=== PATIENT | female | born 1990 | race Caucasian/White ===

== ENCOUNTER 2017-06-18 15:28 | Emergency (ER) | payer OTHER ==
--- NOTE | 2017-06-18 16:24 | PD ---
HPI Chief Complaint Decreased movement Date Seen: Jun 18, 2017 Time Seen: 16:22 Travel History International Travel<30 Days: No Contact w/Intl Traveler<30Days: No Known Affected Area: No History of Present Illness HPI 26-year-old who is 22 weeks 6 days comes in complaining of decreased movement for 1 day. Patient denies any antepartum complications and she last saw her physician Dr. Roberson back May 30. History Past Medical History Medical History: Denies Significant Hx Past Surgical History Narrative Surgical Tonsillectomy Family History Family History: Negative Social History Alcohol Use: No Tobacco Use: No Substance Abuse: No Allergies-Medications (Allergen,Severity, Reaction): Coded Allergies: Sulfa (Sulfonamide Antibiotics) (Verified Allergy, Unknown, hives, 06/18/17 ) Review of Systems Except as stated in HPI: all other systems reviewed are Neg Physical Exam Narrative GENERAL: Well-nourished, well-developed patient. SKIN: Warm and dry. HEAD: Normocephalic and atraumatic. EYES: No scleral icterus. No injection or drainage. ENT: No nasal drainage noted. Mucous membranes pink. Airway patent. NECK: Supple, trachea midline. No JVD. CARDIOVASCULAR: Regular rate and rhythm without murmurs, gallops, or rubs. RESPIRATORY: Breath sounds equal bilaterally. No accessory muscle use. ABDOMEN/GI: Abdomen soft, non-tender, bowel sounds present, no rebound, no guarding Gravid to [20-] weeks size Fundal Height: [-] GENITOURINARY: Deferred External Genitalia: intact and normal in appearance BUS glands: [-] Cervix: [-] Dilatation: [-] Effacement: [-] Station: [-] Presentation: [-] Membranes: [intact or ruptured] Uterine Contractions: [-] FHT's: 150 Category: [-] Baseline: [-] Reactive: [-] Variability: [-] Decels: [-] Data Data Vital Signs Reviewed: Yes [facility] Medical Record Reviewed: Yes Plan 26-year-old who is at 22 weeks 6 days was reassured regarding decreased movement. Normal Dopplers are noted Patient will follow up with OB provider as scheduled Diagnosis Diagnosis: Primary Impression: 22 weeks gestation of Additional Impression: Decreased movements in second trimester Disposition: DISCHARGE HOME Lory Meeyr MD Jun 18, 2017 16:24
== END 2017-06-18 16:30 | disposition home or self-care (01) ==
LOC: HOBED 15:28
DX: O36.8120 Decreased fetal movements, second trimester, not applicable or unspecified (principal); Z3A.22 22 weeks gestation of pregnancy
CPT/HCPCS: 99283

== ENCOUNTER → 2017-09-23 | Emergency (ER) | payer OTHER ==
[2017-09-23 16:56] LABS: AUTOMATED NEUTROPHIL # 7.1 TH/MM3 (1.8-7.7); BASOPHIL % 0.1 % (0.0-2.0); EOSINOPHIL % 0.4 % (0.0-4.0); HEMOGLOBIN 12.7 GM/DL (11.6-15.3); LYMPH % 21.3 % (9.0-44.0); LYMPHOCYTE # 2.1 TH/MM3 (1.0-4.8); MEAN CELL VOLUME 91.3 FL (80.0-100.0); MEAN CORPUSCULAR HEMOGLOBIN 32.2 PG (27.0-34.0); MEAN CORPUSCULAR HGB CONC 35.2 % (32.0-36.0); MONO % 6.5 % (0.0-8.0); MONOCYTE # 0.6 TH/MM3 (0-0.9); NEUT % 71.7 % (16.0-70.0); PLATELET COUNT 246 TH/MM3 (150-450); RED BLOOD COUNT 3.94 MIL/MM3 (4.00-5.30); RED CELL DISTRIBUTION WIDTH 12.6 % (11.6-17.2); WHITE BLOOD COUNT 9.9 TH/MM3 (4.0-11.0)
[2017-09-23 16:58] LABS: BACTERIA, URINE FEW /hpf; BILIRUBIN, URINE NEG (NEG); BLOOD, URINE NEG (NEG); GLUCOSE,URINE NEG (NEG); KETONE, URINE NEG (NEG); NITRITE,URINE NEG (NEG); SQUAMOUS EPITHELIAL CELL URINE 1 /hpf (0-5); URINE COLOR LIGHT-YELLOW (YELLW/STRAW); URINE LEUKOCYTE ESTERASE NEG (NEG)
[2017-09-23 17:11] LABS: ALBUMIN 2.7 GM/DL (3.4-5.0); DIRECT BILIRUBIN ADULT 0.2 MG/DL (0.0-0.2)
[2017-09-23 17:13] LABS: INDIRECT BILIRUBIN 0.4 MG/DL (0.0-0.8); TOTAL BILIRUBIN ADULT 0.6 MG/DL (0.2-1.0); TOTAL PROTEIN 6.5 GM/DL (6.4-8.2)
--- NOTE | 2017-09-23 17:24 | PD ---
HPI Chief Complaint pih Date Seen: September 23, 2017 Time Seen: 17:08 Travel History International Travel<30 Days: No Contact w/Intl Traveler<30Days: No Known Affected Area: No History of Present Illness HPI pt. is a 26 y/o @ 36 5/[address] allen office for pih workup. pt. had increased bp in office. +FM, no lof/vb, no ctxs, RANDALL/visual changes, no cp/sob, voiding w/o diff. Weeks Gestation: 36 Para: 0 : 1 Last Menstrual Period: September 23, 2017 Miscarriage: 0 : 0 History Social History Alcohol Use: No Tobacco Use: No Substance Abuse: No Allergies-Medications (Allergen,Severity, Reaction): Coded Allergies: Sulfa (Sulfonamide Antibiotics) (Verified Allergy, Unknown, hives, 06/18/17 ) Review of Systems Except as stated in HPI: all other systems reviewed are Neg Physical Exam Narrative GENERAL: Well-nourished, well-developed patient. SKIN: Warm and dry. HEAD: Normocephalic and atraumatic. EYES: No scleral icterus. No injection or drainage. ENT: No nasal drainage noted. Mucous membranes pink. Airway patent. NECK: Supple, trachea midline. No JVD. CARDIOVASCULAR: Regular rate and rhythm without murmurs, gallops, or rubs. RESPIRATORY: Breath sounds equal bilaterally. No accessory muscle use. ABDOMEN/GI: Abdomen soft, non-tender, bowel sounds present, no rebound, no guarding Gravid GENITOURINARY: External Genitalia: intact and normal in appearance Uterine Contractions: none FHT's: Category: 1 Reactive: + Variability: mod EXTREMITIES: No cyanosis or edema. BACK: Nontender without obvious deformity. No CVA tenderness. NEUROLOGICAL: Awake and alert. Motor and sensory grossly within normal limits. Five out of 5 muscle strength in all muscle groups. Normal speech. Data Data Vital Signs Reviewed: Yes Orders Orders Complete Blood Count With Diff (09/23/17 16:27) Type And Screen (09/23/17 16:27) Hepatic Functional Panel (09/23/17 16:27) Urinalysis - C+S If Indicated (09/23/17 16:27) Ob/Psych Drug Screen, Urine (09/23/17 16:27) Instruction (09/23/17 16:53) Labs Laboratory Tests Test 09/23/17 16:05 White Blood Count 9.9 Red Blood Count 3.94 Hemoglobin 12.7 Hematocrit 36.0 Mean Corpuscular Volume 91.3 Mean Corpuscular Hemoglobin 32.2 Mean Corpuscular Hemoglobin Concent 35.2 Red Cell Distribution Width 12.6 Platelet Count 246 Mean Platelet Volume 7.0 Neutrophils (%) (Auto) 71.7 Lymphocytes (%) (Auto) 21.3 Monocytes (%) (Auto) 6.5 Eosinophils (%) (Auto) 0.4 Basophils (%) (Auto) 0.1 Neutrophils # (Auto) 7.1 Lymphocytes # (Auto) 2.1 Monocytes # (Auto) 0.6 Eosinophils # (Auto) 0.0 Basophils # (Auto) 0.0 CBC Comment DIFF FINAL Differential Comment Urine Color LIGHT-YELLOW Urine Turbidity CLEAR Urine pH 7.0 Urine Specific [place] 1.005 Urine Protein NEG Urine Glucose (UA) NEG Urine Ketones NEG Urine Occult Blood NEG Urine Nitrite NEG Urine Bilirubin NEG Urine Urobilinogen LESS THAN 2.0 Urine Leukocyte Esterase NEG Urine RBC LESS THAN 1 Urine WBC 1 Urine Squamous Epithelial Cells 1 Urine Bacteria FEW Microscopic Urinalysis Comment CULT NOT INDICATED Urine Opiates Screen NEG Urine Barbiturates Screen NEG Urine Amphetamines Screen NEG Urine Benzodiazepines Screen NEG Urine Cocaine Screen NEG Urine Cannabinoids Screen NEG MDM Medical Record Reviewed: Yes Plan pt. w/o htn/preeclampsia. pt. to be d/c to home. pt. given precautions for return. all ? answered. f/u as sched. Diagnosis Diagnosis: Primary Impression: PIH ( induced hypertension), antepartum Additional Impression: 36 weeks gestation of Disposition: DISCHARGE HOME Liban Cobb Jr., MD September 23, 2017 17:24
== END | disposition home or self-care (01) ==
LOC: HOBED 15:50
DX: O13.3 Gestational [pregnancy-induced] hypertension without significant proteinuria, third trimester (principal); Z3A.36 36 weeks gestation of pregnancy
CPT/HCPCS: 36415; 59025; 80076; 80307; 81001; 85025; 86077; 86850; 86870; 86900; 86901; 99283; G0481

== ENCOUNTER 2017-10-18 00:49 | Inpatient (IN) | payer OTHER ==
[~2017-10-18] VITALS: Ht 160 cm; Wt 79.5 kg
[2017-10-18] VITALS (53 sets, daily range): BP systolic 111–159; BP diastolic 59–107; PULSE 66–103; RESP 16–20; TEMP 97.6–100.5; O2SAT 98–99
[2017-10-18] MEDS ORDERED: LACTATED RINGER'S 1000 ML INJ 1,000 ML IV PRN (01:36)
[2017-10-18] MEDS ORDERED: OXYTOCIN 30 UNITS-500ML PREMIX 500 ML IV ONE ×2 (01:45→15:30)
[2017-10-18] MEDS ORDERED: SODIUM CHLORID 0.9% 500 ML INJ 500 ML IV PRN (01:45)
[2017-10-18] MEDS ORDERED: OXYTOCIN 30 UNITS-500ML PREMIX 500 ML IV PRN (01:45)
[2017-10-18] MEDS ORDERED: SODIUM CHLORIDE 0.9% FLUSH 10 ML FLUSH IV FLUSH PRN ×2 (01:45→15:30)
[2017-10-18] MEDS ORDERED: CITRIC ACID-SODIUM CITRATE LIQ 30 ML UDC PO SCH (01:45)
[2017-10-18] MEDS ORDERED: LIDOCAINE HCL 1% 50 ML VIAL INFIL PRN (01:45)
[2017-10-18] MEDS ORDERED: LIDOCAINE HCL 1% 50 ML VIAL I-DERMAL PRN (01:45)
[2017-10-18] MEDS ORDERED: MINERAL OIL 10 ML VIAL TOPICAL PRN (01:45)
--- NOTE | 2017-10-18 01:53 | HHI.HP ---
History & Physical H&P Chief Complaint pt c/o LOF Date Seen: Oct 18, 2017 Time Seen: 01:00 Travel History International Travel<30 Days: No Contact w/Intl Traveler<30Days: No Known Affected Area: No History of Present Illness HPI 26 yo presents c/o LOF at 0000, clear. pt with irregular contractions since then. states cervix was 1-2 cm in the office this week. states bps have been slightly elevated with nl labs. denies RANDALL/RUQ pain and visual changes. Weeks Gestation: 40 Para: 0 : 1 History (Limited) History Past Medical History Medical History: Denies Significant Hx Obstetric History Obstetric History Past Surgical History Narrative Surgical tonsillectomy Family History Family History: Negative Social History Alcohol Use: No Tobacco Use: No Substance Abuse: No Allergies-Medications Allergies-Medications (Allergen,Severity, Reaction): Coded Allergies: Sulfa (Sulfonamide Antibiotics) (Verified Allergy, Unknown, hives, 06/18/17 ) ROS Review of Systems Except as stated in HPI: all other systems reviewed are Neg Physical Exam Physical Exam 141/95 Narrative GENERAL: Well-nourished, well-developed patient. SKIN: Warm and dry. HEAD: Normocephalic and atraumatic. EYES: No scleral icterus. No injection or drainage. ENT: No nasal drainage noted. Mucous membranes pink. Airway patent. NECK: Supple, trachea midline. No JVD. CARDIOVASCULAR: Regular rate and rhythm without murmurs, gallops, or rubs. RESPIRATORY: Breath sounds equal bilaterally. No accessory muscle use. BREASTS: Bilateral exam showed no masses , no retractions, no nipple discharge. ABDOMEN/GI: Abdomen soft, non-tender, bowel sounds present, no rebound, no guarding Gravid to [-] weeks size Fundal Height: [-] 40 GENITOURINARY: External Genitalia: intact and normal in appearance BUS glands: [-] Cervix: [-] Dilatation: [-] 1-2/80/-2 Effacement: [-] Station: [-] Presentation: [-] Membranes: [intact or ruptured] Uterine Contractions: [-] FHT's: Category: [-] 1 Baseline: [-] Reactive: [-] yes Variability: [-] Decels: [-] EXTREMITIES: No cyanosis or edema. BACK: Nontender without obvious deformity. No CVA tenderness. NEUROLOGICAL: Awake and alert. Motor and sensory grossly within normal limits. Five out of 5 muscle strength in all muscle groups. Normal speech. Data Data Data Vital Signs Reviewed: Yes Orders Orders Ob (2e) Additional Admit Info (10/18/17 01:32) Admit To Inpatient (10/18/17 ) Code Status (10/18/17 01:36) Vital Signs (Adult) .Per protocol (10/18/17 01:36) Activity Oob Ad Annamarie (10/18/17 01:36) Heart (10/18/17 01:36) Amnioinfusion (10/18/17 01:36) Urinary Catheter Management .ONCE (10/18/17 01:36) Diet Liquid (10/18/17 Breakfast) Lactated Ringer's 1000 Ml Inj (Lr 1000 M (10/18/17 01:36) Lactated Ringer's 1000 Ml Inj (Lr 1000 M (10/18/17 01:36) Sodium Chlorid 0.9% 500 Ml Inj (Ns 500 M (10/18/17 01:45) Sodium Chlor 0.9% 1000 Ml Inj (Ns 1000 M (10/18/17 01:56) Lidocaine 1% Inj (50 Ml) (Xylocaine 1% I (10/18/17 01:45) Citric Acid-Sodium Citrate Liq (Bicitra (10/18/17 01:45) Fentanyl Inj (Fentanyl Inj) (10/18/17 01:45) Fentanyl Inj (Fentanyl Inj) (10/18/17 01:45) Complete Blood Count With Diff (10/18/17 01:36) Hold Clot (10/18/17 01:36) Abo/Rh Blood Type (10/18/17 01:36) Urinalysis - C+S If Indicated (10/18/17 01:36) Drug Screen, Random Urine (10/18/17 01:36) Ob/Psych Drug Screen, Urine (10/18/17 01:36) Resp Oxygen Non Rebreathe Mask (10/18/17 ) ^ Epidural / Intrathecal Infus (10/18/17 01:36) Oxytocin 30 Units-500ml Premix (Pitocin (10/18/17 01:45) Lidocaine 1% Inj (50 Ml) (Xylocaine 1% I (10/18/17 01:45) Light Mineral Oil (Muri-Lube Oil) (10/18/17 01:45) ^ Non Stress Test (10/18/17 01:36) Response To Medication .Post New Med Administration, Reaction (10/18/17 01:36) ^ Discontinue Medication (10/18/17 01:36) Oxytocin Drip (2-2-30) (10/18/17 01:45) Inpatient Certification (10/18/17 ) Notify Parameters (10/18/17 01:36) Sodium Chloride 0.9% Flush (Ns Flush) (10/18/17 01:45) Sodium Chloride 0.9% Flush (Ns Flush) (10/18/17 09:00) Uric Acid (10/18/17 01:36) Group B Strep: Negative MDM MDM Medical Record Reviewed: Yes Interpretation(s) SROM at term Plan admit check PIH labs gbs neg augment with PIT prn Diagnosis Diagnosis: Primary Impression: PIH ( induced hypertension), antepartum Additional Impression: SROM (spontaneous rupture of membranes) Justine Montenegro MD Oct 18, 2017 01:53
[2017-10-18] MEDS ORDERED: SODIUM CHLOR 0.9% 1000 ML INJ 1,000 ML IV PRN (01:56)
[2017-10-18] MEDS: LACTATED RINGER'S 1000 ML INJ 1,000 ML IV SCH ×2 (02:15→07:32)
[2017-10-18 02:36] LABS: AUTOMATED NEUTROPHIL # 11.6 TH/MM3 (1.8-7.7); BASOPHIL # 0.1 TH/MM3 (0-0.2); BASOPHIL % 0.4 % (0.0-2.0); EOSINOPHIL # 0.2 TH/MM3 (0-0.4); EOSINOPHIL % 1.1 % (0.0-4.0); HEMATOCRIT 39.6 % (35.0-46.0); HEMOGLOBIN 13.8 GM/DL (11.6-15.3); LYMPHOCYTE # 3.7 TH/MM3 (1.0-4.8); MEAN CELL VOLUME 92.4 FL (80.0-100.0); MEAN CORPUSCULAR HEMOGLOBIN 32.3 PG (27.0-34.0); MEAN PLATELET VOLUME 8.8 FL (7.0-11.0); MONO % 6.4 % (0.0-8.0); MONOCYTE # 1.1 TH/MM3 (0-0.9); NEUT % 70.1 % (16.0-70.0); PLATELET COUNT 246 TH/MM3 (150-450); RED BLOOD COUNT 4.28 MIL/MM3 (4.00-5.30); RED CELL DISTRIBUTION WIDTH 13.1 % (11.6-17.2); WHITE BLOOD COUNT 16.6 TH/MM3 (4.0-11.0)
[2017-10-18 02:45] LABS: BACTERIA, URINE OCC /hpf; BILIRUBIN, URINE NEG (NEG); BLOOD, URINE SMALL (NEG); GLUCOSE,URINE NEG (NEG); HYALINE CAST, URINE 1 /lpf (RARE); KETONE, URINE NEG (NEG); MUCUS URINE FEW /lpf (OCC); NITRITE,URINE NEG (NEG); SQUAMOUS EPITHELIAL CELL URINE 2 /hpf (0-5); URINE COLOR Straw (YELLW/STRAW); URINE LEUKOCYTE ESTERASE TRACE (NEG)
[2017-10-18] MEDS ORDERED: [UNRECOGNIZED DRUG - CODE] (05:30)
[2017-10-18] MEDS ORDERED: SODIUM CHLORIDE 0.9% FLUSH 10 ML FLUSH IV FLUSH SCH ×2 (09:00→21:00)
[2017-10-18] MEDS ORDERED: fentaNYL 2MCG-BUPIV 0.125% INJ 150 ML EPIDURAL ONE (09:24)
[2017-10-18] MEDS ORDERED: ePHEDrine/NS 25 MG/5 ML SYRINGE ONE (09:24)
[2017-10-18] MEDS ORDERED: ePHEDrine/NS 25 MG/5 ML SYRINGE IV PUSH PRN (10:15)
[2017-10-18] MEDS ORDERED: DO NOT ADMINISTER ANTICOAGULANTS PRN (10:15)
[2017-10-18] MEDS ORDERED: fentaNYL 2MCG-BUPIV 0.125% 150 ML EPIDURAL PRN (10:15)
[2017-10-18] MEDS ORDERED: NO SYSTEM NARCOTICS PRN (10:15)
--- NOTE | 2017-10-18 15:18 | PD.OB.DELI ---
Weeks gestation: 40 Gest age assessed date: Oct 18, 2017 Pt started active labor?: Yes Medical induction of labor?: No Artificial rupture of membrane: No Anesthesia: Epidural Episiotomy: Midline Vaginal Delivery: Normal Presentation: Occiput anterior Nuchal Cord: x1 Delayed cord clamping (45 sec): Yes Infant: Male Delivery date: Oct 18, 2017 Delivery time: 14:42 One Minute : 8 Five Minute : 9 Placenta: Spontaneous delivery, Intact, 3 vessel cord Laceration: Episiotomy Repair: Vicryl running Estimated blood loss: 300 Additional Information Beautiful delivery of Americo Pratt went well. Dilia Roberson MD Oct 18, 2017 15:18
[2017-10-18] MEDS ORDERED: OXYTOCIN 30 UNITS-500ML PREMIX 500 ML IV SCH (15:30)
[2017-10-18] MEDS ORDERED: ONDANSETRON ODT 4 MG TAB PO PRN (15:30)
[2017-10-18] MEDS ORDERED: ZOLPIDEM TARTRATE 5 MG TAB PO PRN (15:30)
[2017-10-18] MEDS ORDERED: BENZOCAINE 20% TOPICAL SPRAY 60 ML CAN TOPICAL PRN (15:30)
[2017-10-18] MEDS ORDERED: oxyCODONE/ACETAMINOPHEN 5 MG/325 MG TAB PO PRN (15:30)
[2017-10-18] MEDS ORDERED: ALUMINUM/MAGNESIUM/SIMETH 30 ML CUP PO PRN (15:30)
[2017-10-18] MEDS ORDERED: MEASLES, MUMPS, RUBELLA VACCINE 0.5 ML VIAL SQ ONE (16:00)
[2017-10-18] MEDS ORDERED: DIPHTH/TETANUS/ACEL PERTUSSIS (BOOSTER) 0.5 ML VIAL/PFS IM ONE (16:00)
[2017-10-18] MEDS: WITCH HAZEL 50%/GLYCERIN 12.5% 40 PAD JAR TOPICAL PRN (16:07)
[2017-10-18] MEDS: IBUPROFEN 800 MG TAB PO PRN (16:07)
[2017-10-19] MEDS: ACETAMINOPHEN 325 MG TAB PO PRN (06:06)
[2017-10-19 09:45] VITALS: BP 118/73; PULSE 85; RESP 17; TEMP 98.5
[2017-10-19] MEDS: DOCUSATE SODIUM 50 MG/SENNA 8.6 MG TAB PO PRN (10:04)
[2017-10-19] MEDS: IBUPROFEN 800 MG TAB PO PRN ×3 (10:04→17:46)
--- NOTE | 2017-10-19 14:09 | HHI.OB ---
Subjective Post Day: 1 Remarks sleeping soundly spoke to and she and baby are doing well this is the first good sleep she has had Objective Vitals/I&O Vital Signs Date Time Temp Pulse Resp B/P (MAP) Pulse Ox O2 Delivery O2 Flow Rate FiO2 10/19/17 09:45 85 17 118/73 (88) 10/19/17 09:45 98.5 10/18/17 19:00 98.9 10/18/17 19:00 71 18 114/72 (86) 10/18/17 19:00 98.1 10/18/17 17:00 78 16 123/78 (93) 10/18/17 17:00 98.9 10/18/17 16:26 74 125/78 (94) 10/18/17 15:45 91 129/70 (89) 10/18/17 15:31 76 131/69 (89) 10/18/17 15:24 100.5 10/18/17 14:45 18 10/18/17 14:30 20 10/18/17 14:15 20 10/18/17 14:15 96 155/87 (109) Objective Remarks GENERAL: Well-nourished, well-developed patient. Resting comfortably in bed. Medications and IVs Current Medications Medications (Trade) Dose Ordered Sig/Cristela Route Start Time Stop Time Status Last Admin (NS Flush) 2 ml BID IV FLUSH 10/18/17 21:00 (NS Flush) 2 ml UNSCH PRN IV FLUSH 10/18/17 15:30 (Tylenol) 650 mg Q4H PRN PO 10/18/17 15:30 10/19/17 06:06 (Motrin) 800 mg Q8H PRN PO 10/18/17 15:30 10/19/17 10:04 (Percocet 5-325 Mg) 1 tab Q4H PRN PO 10/18/17 15:30 (Americaine 20% Top Spr) 1 spray Q4H PRN TOPICAL 10/18/17 15:30 10/18/17 16:07 (Tucks Pads) 1 applic QID PRN TOPICAL 10/18/17 15:30 10/18/17 16:07 (Belkys-Colace) 2 tab Q12H PRN PO 10/18/17 15:30 10/19/17 10:04 (Ambien) 5 mg HS PRN PO 10/18/17 15:30 (Mag-Al Plus Susp Liq) 15 ml Q8H PRN PO 10/18/17 15:30 (Zofran Odt) 4 mg Q6H PRN PO 10/18/17 15:30 Assessment/Plan Assessment and Plan PPD #1 Doing well Routine care Circ tomorrow. Dilia Roberson MD Oct 19, 2017 14:09
[2017-10-19] MEDS: WITCH HAZEL 50%/GLYCERIN 12.5% 40 PAD JAR TOPICAL PRN (17:46)
[2017-10-19 20:00] VITALS: BP 113/76; PULSE 82; RESP 18; TEMP 98.8
[2017-10-20] MEDS: ACETAMINOPHEN 325 MG TAB PO PRN (01:57)
[2017-10-20] MEDS: IBUPROFEN 800 MG TAB PO PRN ×2 (01:58→11:38)
--- NOTE | 2017-10-20 08:53 | HHI.OB ---
Subjective Post Day: 2 Objective Vitals/I&O Vital Signs Date Time Temp Pulse Resp B/P (MAP) Pulse Ox O2 Delivery O2 Flow Rate FiO2 10/19/17 20:00 98.8 82 18 10/19/17 20:00 113/76 (88) 10/19/17 09:45 85 17 118/73 (88) 10/19/17 09:45 98.5 Objective Remarks Medications and IVs Current Medications Medications (Trade) Dose Ordered Sig/Cristela Route Start Time Stop Time Status Last Admin (NS Flush) 2 ml BID IV FLUSH 10/18/17 21:00 (NS Flush) 2 ml UNSCH PRN IV FLUSH 10/18/17 15:30 (Tylenol) 650 mg Q4H PRN PO 10/18/17 15:30 10/20/17 01:57 (Motrin) 800 mg Q8H PRN PO 10/18/17 15:30 10/20/17 01:58 (Percocet 5-325 Mg) 1 tab Q4H PRN PO 10/18/17 15:30 (Americaine 20% Top Spr) 1 spray Q4H PRN TOPICAL 10/18/17 15:30 10/18/17 16:07 (Tucks Pads) 1 applic QID PRN TOPICAL 10/18/17 15:30 10/19/17 17:46 (Belkys-Colace) 2 tab Q12H PRN PO 10/18/17 15:30 10/19/17 10:04 (Ambien) 5 mg HS PRN PO 10/18/17 15:30 (Mag-Al Plus Susp Liq) 15 ml Q8H PRN PO 10/18/17 15:30 (Zofran Odt) 4 mg Q6H PRN PO 10/18/17 15:30 Assessment/Plan Problem List: (1) Normal vaginal delivery ICD Codes: O80 - Encounter for full-term uncomplicated delivery Assessment and Plan PPD # 2 Doing well Pain well managed with oral pain medication Routine care Discharge Planning [facility] today Linda Shaikh Oct 20, 2017 08:53
--- NOTE | 2017-10-20 08:55 | HHI.DCPOC ---
Discharge Care Plan Diagnosis: (1) Normal vaginal delivery Your Health Problems Are: Vaginal delivery Report Symptoms to Your Doctor -Temperature above 100.5 degrees -Redness, of incision or excessive or foul smelling drainage -Unusual pain or calf pain -Increased vaginal bleeding -Painful or difficulty urinating -Feelings of extreme sadness or anxiety after 2 weeks Goals to Promote Your Health * To prevent worsening of your condition and complications * To maintain your health at the optimal level Directions to Meet Your Goals Take your medications as prescribed Follow your dietary instruction Follow activity as directed Ensure plenty of rest for recovery Drink fluids for hydration Keep your appointments as scheduled Take your immunizations and boosters as scheduled If your symptoms worsen call your PCP, if no PCP go to Urgent Care Center or Emergency Room Smoking is Dangerous to Your Health. Avoid second hand smoke Call the 24-hour crisis hotline for domestic abuse at Linda Shaikh Oct 20, 2017 08:55
--- NOTE | 2017-10-20 08:55 | HHI.DS ---
Admission Date Oct 18, 2017 at 01:33 Discharge Date: Oct 20, 2017 Admitting Diagnosis term SROM Diagnosis: (1) Normal vaginal delivery Diagnosis: Principal ICD Codes: O80 - Encounter for full-term uncomplicated delivery Delivery Date: Oct 18, 2017 Vaginal Delivery: Normal : Male Brief History 26 yo presents c/o LOF at 0000, clear. pt with irregular contractions since then. states cervix was 1-2 cm in the office this week. states bps have been slightly elevated with nl labs. denies RANDALL/RUQ pain and visual changes. Hospital Course term SROM routine care Pt Condition on Discharge: Good Discharge Disposition: Discharge Home Discharge Instructions Diet Instructions: As Tolerated, No Restrictions Additional Diet Instructions: Drink at least 8 - 16 oz bottles of water a day Activities You Can Perform: Shower Only-No Bath, Sitz Bath Activities to Avoid: Lifting/Bending, Sexual Activity Additional Activity Instruc.: No driving until off pain medications Do not lift anything heavier than your baby in an infant carrier Follow up Referrals: SURVEY RESEARCH ANALYST - 2 Weeks @ [facility] New Medications: Ibuprofen (Ibuprofen) 800 Mg Tab 800 MG PO Q8H PRN for CRAMPING, #30 TAB 1 Refill Continued Medications: Pnv 102/Iron/Folic/Dha/Lutein (Similac Combo Pack) 27 Mg Iron-800 Mcg- 200 Mg-6 Mg Combo..Linda Sánchez Oct 20, 2017 08:55
[2017-10-20] MEDS ORDERED: IBUP1TAB7 PO (08:59)
[2017-10-20] MEDS: DOCUSATE SODIUM 50 MG/SENNA 8.6 MG TAB PO PRN (11:38)
== END 2017-10-20 13:20 | disposition home or self-care (01) | DRG 775 ==
LOC: HOBED 00:49 → H2EB 01:33 → H1EA 16:44
PROVIDERS: ADMIT Obstetrics & Gynecology; ATTEND Obstetrics & Gynecology
PROC: 10E0XZZ Delivery of Products of Conception, External Approach (ICD-10-PCS; principal; 2017-10-18)
PROC: 0W8NXZZ Division of Female Perineum, External Approach (ICD-10-PCS; 2017-10-18)
PROC: 00HU33Z Insertion of Infusion Device into Spinal Canal, Percutaneous Approach (ICD-10-PCS; 2017-10-18)
PROC: 3E0R3BZ Introduction of Anesthetic Agent into Spinal Canal, Percutaneous Approach (ICD-10-PCS; 2017-10-18)
DX: O13.4 Gestational [pregnancy-induced] hypertension without significant proteinuria, complicating childbirth (principal); O69.81X0 Labor and delivery complicated by cord around neck, without compression, not applicable or unspecified; Z37.0 Single live birth; Z3A.40 40 weeks gestation of pregnancy; Z23 Encounter for immunization
CPT/HCPCS: 59025; 80307; 81001; 84112; 84550; 85025; 86900; 86901; J3010; J7120